=== PATIENT | female | born 1995 | race Caucasian/White ===

== ENCOUNTER 2021-12-07 01:57 | Inpatient (IN) | payer MEDICAID, SELFPAY ==
[2021-12-07] VITALS (90 sets, daily range): BP systolic 126–166; BP diastolic 77–121; PULSE 71–123; RESP 17–18; TEMP 36.2–36.6; O2SAT 92–100; BMI 33.5
--- NOTE | 2021-12-07 01:57 | LDADM ---
This patient, Richelle Sharpe, was admitted to Labor/Delivery/Recovery 107 on 12/07/21 at 01:57. Plans for labor, pain management and were discussed with patient. Patient/family oriented to hospital policies and general routines including ID bracelet, bed and alarms, visiting hours, pain management, procedures, bathroom and other care routines, personal items, smoking policy, room service/diet and guest tray routines, infant security routines, and visiting hours. Patient/Family are encouraged to report perceived risks to care and to ask questions if they do not understand what they are told or what they should do. See OBIX for further documentation.
[2021-12-07] MEDS: LABETALOL HCL INJ 100 MG/20 ML VIAL 20 MG IV PUSH ×4 (02:26→07:38)
[2021-12-07 02:50] LABS: Basophils Absolute Auto 0.1 K/mm3 (0.0-0.1); Basophils Percent Auto 0.4 % (0.2-1.2); Eosinophils Absolute Auto 0.1 K/mm3 (0-0.3); Eosinophils Percent Auto 0.5 % (0-4.4); Hematocrit 31.6 % (37.0-47.0); Hemoglobin 10.1 g/dL (12.0-15.0); Immature Granulocyte Absolute 0.11 K/mm3 (0.00-0.031); Immature Granulocyte Percent A 0.7 % (0-0.5); Lymphocytes Absolute Auto 2.33 K/mm3 (0.9-3.2); Lymphocytes Percent Auto 14.7 % (18.3-44.2); Mean Corpuscular Hemoglobin 25.1 pg (26-34); Mean Corpuscular Volume 78.4 fl (80-100); Mean Platelet Volume 10.1 fl (7.4-10.4); Monocytes Absolute Auto 0.7 K/mm3 (0.1-0.6); Monocytes Percent Auto 4.1 % (2.6-8.5); Neutrophils Absolute Auto 12.6 K/mm3 (1.3-6.7); Neutrophils Percent Auto 79.6 % (45.5-73.1); Platelet Count Result 317 k/mm3 (150-375); Red Blood Count 4.03 M/mm3 (4.2-5.4); Red Cell Distribution Width 15.3 % (11.5-14.5); White Blood Count 15.8 K/mm3 (4.5-10.0)
[2021-12-07] MEDS: AMPICILLIN 2 GM/NS 100 ML 2 GM/100 ML BAG IVPB (02:51)
[2021-12-07] MEDS: LACTATED RINGERS 1,000 ML 125 ML IV CONT (02:52)
[2021-12-07] MEDS: MAGNESIUM SULF 4 GM/WATER100ML 4 GM/100 ML BAG IVPB (02:52)
[2021-12-07 03:02] LABS: Alanine Aminotransferase 25 U/L (6-35); Albumin Level 3.3 g/dL (3.5-5.1); Alkaline Phosphatase 198 U/L (38-126); Anion Gap 10 mmol/L (8-16); Aspartate Amino Transferase 30 U/L (14-36); Bilirubin,Total 0.2 mg/dL (0.2-1.3); Blood Urea Nitrogen 13 mg/dL (7-17); Calcium 8.7 mg/dL (8.4-10.2); Carbon Dioxide 21 mmol/L (22-30); Chloride 104 mmol/L (98-107); Estimated Glomerular Filt Rate > 60; Glucose 93 mg/dL (65-110); Potassium 3.7 mmol/L (3.4-5.0); Sodium 135 mmol/L (137-145)
[2021-12-07 03:08] LABS: Creatinine Urine 153.8 mg/dL
[2021-12-07 03:19] LABS: Barbiturate Screen Urine Negative (Negative); Benzodiazepines Screen Urine Negative (Negative)
[2021-12-07] MEDS: MAGNESIUM SULF 20GM/WATER500ML 500 ML 50 MG IV CONT ×2 (03:32→13:54)
[2021-12-07 03:43] LABS: HIV 1/2 Ab P24 Ag Result Negative (Negative)
[2021-12-07 03:52] LABS: Cannabinoid Screen Urine Positive (Negative); Cocaine Screen Urine Negative (Negative); Methadone Screen Urine Negative (Negative); Opiate Screen Urine Negative (Negative); Phencyclidine Screen Urine Negative (Negative)
[2021-12-07 03:55] LABS: Amphetamine Screen Urine Positive (Negative)
[2021-12-07 03:56] LABS: Total Protein Urine Random > 200 mg/dL; Ur Ttl Prot Creatinine Ratio > 1.30 mg/mg (0-0.20)
[2021-12-07 04:04] LABS: Hepatitis B Surface Antigen Negative (Negative)
[2021-12-07 04:16] LABS: Rubella IgG Antibody 7.4 IU/ML
--- NOTE | 2021-12-07 04:20 | PC.NURSE ---
RNHailey at bedside, discussed with PT urine drug screen came back positive for Amphetamine and marijuana. PT states she could be positive for Amphetamines due to Adderall. PT states she does not have a perscription for Adderall. PT appears to be more disoriented than when arrived, states she isn't currently taken any medications.
[2021-12-07] MEDS: OXYTOCIN 30 UNITS/NS 500 ML 30 UNITS/500 ML BAG (05:30)
[2021-12-07] MEDS: AMPICILLIN 1 GM/NS 50 ML 1 GM/50 ML BAG IVPB (06:48)
[2021-12-07] MEDS: LABETALOL HCL INJ 100 MG/20 ML VIAL 40 MG IV PUSH (07:54)
[2021-12-07 08:28] LABS: Rapid Plasma Reagin Non-Reactive (NonReactive)
--- NOTE | 2021-12-07 09:13 | WPDHPUPDATE1 ---
History and Physical Update Update Date/Time: 12/07/21 09:13 History and Physical has been reviewed, including an updated exam of the patient. There are NO changes in the patient's condition. Risks, benefits, and alternatives have been discussed and questions answered. Patient agrees to proceed with procedure.
--- NOTE | 2021-12-07 09:13 | WPDOBADMIT ---
Obstetrics - Admit Note Admission Note: record reviewed. No pertinent additions to the history and/or any subsequent changes in the physical findings that are not consistent with the expected course of the were found. Additions to the history and/or subsequent changes in the physical findings follow. None.
--- NOTE | 2021-12-07 09:13 | PM.OBPRVD ---
OB - Delivery Note Procedure Events: No Care and Preeclampsia w severe features Induction method: None Delivery augmentation: Pitocin Delivery monitor: External FHT and External Uterine Route of delivery: Episiotomy description: None Laceration Description: None Specimen: Yes Quantitative Blood Loss (ml): 200 Anesthesia type: None Disposition: Floor Complications: none Narrative: Patient prepped draped in usual manner for this procedure. Maternal expulsive efforts delivered vertex with nuchal cord noted and readily reduced. Rest baby was delivered without difficulty. Cord clamped cut the baby was passed off to the pediatric team that was in attendance for this delivery. Placenta delivered spontaneously, no significant bleeding. Cervix vagina vulva were inspected no lacerations or tears at this point procedure was considered terminated with immediate postoperative condition of mother excellent Baby being evaluated by freedom of information officer. [facility] Baby Weeks of gestation at delivery: 38 Infant gender: Female Weight (pounds): 4 Weight (ounces): 7 presentation: vertex Placenta delivery description: Spontaneous Cord Vessel Description: 3 Vessels score one minute: 8 score five minutes: 9 AMG Delivery Billing Delivery Delivery: Delivery Charge
--- NOTE | 2021-12-07 09:19 | PM.IMHP ---
H&P: HPI History of Present Illness Date/Time: 12/07/21 09:19 26-year-old 5 para 4004 female presents in active labor. She has had limited to no needle care during this . Denies any headaches blurred vision shortness of breath or chest pain. Rupture membranes with active labor earlier tonight. Will it will attempt to obtain records though again are limited. Chief Complaint: Labor PMFSH Social History Social History Smoking status: Current every day smoker Substance use: current Has the Lack of Transportation Kept You From Medical Appointments or From Getting Medications?: No Within the Past 12 Months, Were You Worried Whether Your Food Would Run Out Before You Got Money to Buy More?: Never True What is Your Housing Situation Today?: I Have Housing Are You Worried That in the Next 2 Months, You May Not Have Your Own Housing to Live In?: No Do You Have Trouble Paying Your Heating Or Electricity Bill?: No Do You Have Trouble Paying For Medicines?: No Are You Currently Unemployed and Looking for Work?: No Highest Level of Education Completed: High School Diploma/GED Do You Have Trouble With Childcare or the Care of a Family Member?: No Spiritual care concerns: No Meds Home Medications and Allergies Home Medications Medication Instructions Recorded Confirmed Type No Home Medications 12/07/21 12/07/21 History Allergies Allergy/AdvReac Type Severity Reaction Status Date / Time No Known Allergies Allergy Verified 12/07/21 02:48 Vital Signs Vital Signs - 24 hr 12/07/21 02:31 12/07/21 02:41 12/07/21 02:43 Temperature Pulse Rate 123 H 99 102 H Respiratory Rate Blood Pressure 151/121 H 155/104 H 140/93 H Pulse Oximetry Oxygen Delivery 12/07/21 02:46 12/07/21 02:51 12/07/21 02:56 Temperature Pulse Rate 99 100 99 Respiratory Rate Blood Pressure 146/98 H 155/98 H 146/98 H Pulse Oximetry Oxygen Delivery 12/07/21 03:01 12/07/21 03:06 12/07/21 03:11 Temperature Pulse Rate 101 H 99 101 H Respiratory Rate Blood Pressure 145/99 H 145/92 H 136/81 Pulse Oximetry Oxygen Delivery 12/07/21 03:16 12/07/21 03:21 12/07/21 03:26 Temperature Pulse Rate 101 H 99 104 H Respiratory Rate Blood Pressure 136/86 140/91 H 153/93 H Pulse Oximetry Oxygen Delivery 12/07/21 03:31 12/07/21 03:32 12/07/21 03:36 Temperature Pulse Rate 103 H 103 H 97 Respiratory Rate Blood Pressure 148/89 H 156/95 H 152/95 H Pulse Oximetry Oxygen Delivery 12/07/21 03:30 12/07/21 03:46 12/07/21 04:01 Temperature 97.4 F L Pulse Rate 98 107 H Respiratory Rate Blood Pressure 139/91 H 166/98 H Pulse Oximetry Oxygen Delivery 12/07/21 04:02 12/07/21 04:16 12/07/21 04:26 Temperature Pulse Rate 97 102 H 97 Respiratory Rate Blood Pressure 160/98 H 161/104 H 137/83 Pulse Oximetry Oxygen Delivery 12/07/21 04:31 12/07/21 04:41 12/07/21 04:51 Temperature Pulse Rate 96 93 91 Respiratory Rate Blood Pressure 140/88 139/95 H 145/101 H Pulse Oximetry Oxygen Delivery 12/07/21 05:01 12/07/21 05:09 12/07/21 05:21 Temperature Pulse Rate 90 93 96 Respiratory Rate Blood Pressure 146/108 H 148/100 H 136/112 H Pulse Oximetry Oxygen Delivery 12/07/21 05:31 12/07/21 05:41 12/07/21 05:51 Temperature Pulse Rate 90 90 92 Respiratory Rate Blood Pressure 126/89 134/96 H 140/93 H Pulse Oximetry Oxygen Delivery 12/07/21 06:01 12/07/21 06:11 12/07/21 06:21 Temperature Pulse Rate 90 94 87 Respiratory Rate Blood Pressure 141/91 H 143/98 H 137/101 H Pulse Oximetry Oxygen Delivery 12/07/21 05:30 12/07/21 06:31 12/07/21 06:30 Temperature 97.5 F L 98 F Pulse Rate 87 Respiratory Rate Blood Pressure 144/100 H Pulse Oximetry Oxygen Delivery 12/07/21 06:
[2021-12-07] MEDS: LABETALOL HCL 100 MG TABLET 200 MG PO ×2 (10:40→18:40)
--- NOTE | 2021-12-07 14:50 | OBPPTRN ---
1115-Patient transferred to post room #291 via wheelchair. Oriented to unit, room, information board, rooming in, admission packet and security measures. Patient verbalizes understanding.
--- NOTE | 2021-12-07 15:43 | PCCCNOTE ---
Addendum entered by Kaleigh Cheney, [facility] 12/22/21 08:59: Umbilical cord drug screen results faxed to [facility] office, Rema Leigha, at [phone]. Addendum entered by Kaleigh Cheney, [facility] 12/08/21 13:32: Recvd call from local child protective investigator out of the [facility] office, Rema Leigha [phone], who requests drug screen be faxed to [phone]. CC faxed requested documents. Rema haq will follow up with all involved parties. Addendum entered by Kaleigh Cheney, [facility] 12/08/21 12:24: Loni with [facility] reports they do not have jurisdiction and instructed CC to call into [facility] again. Called [facility] and made report with Gabriella Bello Intake ID # [id number]. Addendum entered by Kaleigh Cheney, [facility] 12/08/21 09:59: Spoke with Reba(ph: [phone]), Senior Technical Support Analyst, at [facility] who is made aware of all information. Reba requests pt. and baby girl's drug screens. CC faxed requested documents to [phone]. Reba reports the baby's meconium drug screen is pending. Addendum entered by Kaleigh Cheney, [facility] 12/08/21 09:23: Recvd a phone call from Loni Woodard [phone] with [facility] who reports will follow up with [facility] regarding baby grayson Sharpe. Loni requests pt. and baby girl's drug screens. CC faxed requested documents to [phone]. Addendum entered by Kaleigh Cheney, [facility] 12/08/21 09:15: Spoke with Phil Carrasco, pillowcase sewer at [facility], and made her aware of the information. Addendum entered by Kaleigh Cheney, [facility] 12/08/21 08:43: Baby's UDS was + for Amphetamines. Baby's umbilical cord is pending. Addendum entered by LAWSON Dillon 12/08/21 08:13: Jeff from [facility] who reports his pipe and test supervisor asks that the [facility] hotline be called at , due to pt. having a recent [place] address, [place], and pt. being current with a [place] agency. Spoke with Amelia(work ID # [id number]) with [facility] and made a report(report ID # [id number]), who reports this referral is being sent to [facility](ph: [phone]). Original Note: Recvd referral due to + UDS. Pt. tested + for Amphetamines and Marijuana. Pt. reports she has a script for Adderall which could be why she tested +, but pt. unable to provide proof of script. Pt. provided CC with an [place] address - [address] in [place], and as well as [place] address - [address] in [place] [address]. Pt. reports she has [place] Medicaid. Pt. is current with children and family services through [facility] [employer] in [facility] and her current pillowcase sewer is Phil Carrasco ([phone]) and pipe and test supervisor is Radha Lai ([phone]). Per RN, baby was born and had elevated bilirubin level due to pt. not having care/receiving a Rhogam shot. This resulted in baby being transferred [facility]. Baby's UDS was + for Amphetamines. RN reports this is pt's 5th baby. It is unknown if pt. has custody of any of her children. CC to follow up with her [facility] pillowcase sewer, and [facility] Senior Technical Support Analyst tomorrow 12/08. RIGOBERTO Powell aware. Doctor would like for pt. to stay and be monitored for two days. Report made with Jeff at [facility]; Intake ID # [id number]. Jeff aware of the above and reports he will discuss with his pipe and test supervisor and will call CC back if we need to call [facility] hotline as well.
[2021-12-07] MEDS: LACTATED RINGERS 1,000 ML 75 ML IV CONT (16:17)
[2021-12-07] MEDS: LACTATED RINGERS 1,000 ML 75 ML (16:45)
--- NOTE | 2021-12-07 17:55 | PC.NURSE ---
8183-RN was called to room; pt asking to leave AMA; RN spoke with Dr. Roman; Per doctor, RN stressed to pt the need to stay under doctor's care for severe pre-eclampsia and if pt leaves AMA, pt will need to follow-up with [facility] office where she stated she had previous OB care before delivering here today. RN was able to calm pt and she will stay for her next dose of labetalol and then RN will re-evaluate situation.
--- NOTE | 2021-12-07 18:49 | PC.NURSE ---
Patient called out stating that she wanted her discharge papers. Her aunt was present in the room. Educated patient that she was not being discharged by Dr. Roman and that signing the AMA papers was her decision. Reviewed with patient and her aunt that leaving AMA puts her at risks for severe PIH, handout given and reviewed. They verbalized their understanding of reasons to return to the ER including headaches, blurry vision, and seizures. She is also aware of the financial implications of leaving without discharge orders. Informed patient that Dr. Roman advises she remain inpatient to receive magnesium sulfate and close monitoring of her condition. Patient states she understands this and chooses to sign out AMA. Strongly suggested that patient follow up with her regular OBGYN as soon as possible. Patient states she will call them, she did not provide the doctor's name. Magnesium and IV access discontinued. Patient agreed to take her 1900 dose of Labetalol before leaving. Roseanna supplies given. Left via private vehicle with her aunt.
--- NOTE | 2021-12-07 19:20 | PC.NURSE ---
12/07/2021 at [address] Roman per Stephany Soto RN request, I went in to speak to the patient. The patient was sitting up in bed and states she wants to be discharged now. I explained to the patient she needs to stay because of her chances of having a seizure are high because of her high blood pressures. Well my pressures have not been high all day. Richelle replied. I said well no, but you have been on the IV medication and other blood pressure medication all day. I continued to discussed that it's just not safe for her to leave. I don't care, I have blood pressure medicine at home, I'll just take that. Stephany Soto RN told the patient that if she leaves against medical advice that she will be responsible for the entire bill. She replied, Ok. I then spoke to the patient's Aunt and I told her she will shoulder responsibility for taking Richelle from the hospital that the Doctor does not want her to leave. The Aunt replied to me and said, I've raised three children that are completely 100% healthy. Later on the way to the elevator the Aunt told me thank you for being concerned about Richelle's well-being. I told her to seek medical help from the nearest Emergency Room if they need help. The Aunt states she would. Operations And Maintenance Specialist Kinjal Díaz and Dr. Roman notified.
--- NOTE | 2021-12-10 15:29 | PM.OBDSVD ---
DS: Admitting Diagnosis Discharge Date 12/07/21 Patient left AMA within 24hours of delivery. Admitting Diagnosis /no care/ preeclampsia with severe features. OB - DS: Summary OB Procedures : None OB Procedures Intrapartum: Spontaneous Vag Delivery OB Procedures: : None Time Spent with Patient Time attestation: Total time spent providing and/or coordinating discharge services: DS: Data Data Completed and Pending Completed studies during hospitalization: Pending at discharge 12/07/21 09:00 Surgical [PTH] Routine Discharge Plan Discharge Patient Disposition: Left Against Medical Advice Discharge Medications: No Action No Home Medications Date of admission: 12/07/21 01:57 Primary Care Provider: UNKNOWN,DOCTOR Admitting Provider: Kris Roman Attending physician on admission: Kris Roman
== END 2021-12-07 18:49 | disposition left against medical advice (07) | DRG 560 ==
LOC: ANHLDR 12-08 10:24 → ANHOB2 12-08 10:24
PROVIDERS: Admitting Provider Obstetrics & Gynecology; Visit Provider Obstetrics & Gynecology
DX: O14.14 Severe pre-eclampsia complicating childbirth (principal); O69.81X0 Labor and delivery complicated by cord around neck, without compression, not applicable or unspecified; Z37.0 Single live birth; Z3A.37 37 weeks gestation of pregnancy
CPT/HCPCS: 36415; 80053; 80307; 82570; 84112; 84156; 84550; 85025; 86592; 86703; 86762; 86850; 86880; 86900; 86901; 86902; 86922; 87340; 88307; A9270; G0432; J0290; J2590; J3475; J7120